=== PATIENT | male | born 2000 | race Caucasian/White ===

== ENCOUNTER 2022-06-11 20:41 | Emergency (ER) | payer BC ==
[~2022-06-11] VITALS: Ht 170.2 cm; Wt 63.6 kg
[2022-06-11 21:59] VITALS: BP 109/64; PULSE 69; TEMP 98.2
== END 2022-06-11 21:59 | disposition home or self-care (01) ==
LOC: COL.ER 20:41
DX: Z20.3 Contact with and (suspected) exposure to rabies (principal); Z29.14 Encounter for prophylactic rabies immune globulin

== ENCOUNTER 2022-06-11 21:42 | Outpatient (RCR) | payer SELFPAY ==
[~2022-06-11] VITALS: Ht 167.6 cm; Wt 63.6 kg
[2022-06-25 16:42] VITALS: BP 108/70; PULSE 68; TEMP 98.3
== END 2022-06-25 16:58 ==
LOC: COL.ER
DX: Z29.14 Encounter for prophylactic rabies immune globulin (principal)